=== PATIENT | male | born 1960 | race Hispanic/Latino ===

== ENCOUNTER 2023-06-19 19:51 | Emergency (ER) | payer OTHER ==
[~2023-06-19] VITALS: Ht 172.7 cm; Wt 81.6 kg
[2023-06-19 20:15] VITALS: BP 129/75
[2023-06-19 20:30] VITALS: BP 121/71
[2023-06-19 20:53] LABS: BASO% 0.6 % (0-3); EOS% 5.1 % (0-8); HEMATOCRIT 45.3 % (39.0-50.0); HEMOGLOBIN 14.6 g/dl (14.0-18.0); IMMATURE GRANULOCYTES 0.3 % (0.0-5.0); LYMPH% 20.9 % (15-41); MEAN CELL VOLUME 88.8 fL CALC (80.0-100.0); MEAN CORPUSCULAR HGB 28.6 pG CALC (26.0-32.0); MEAN CORPUSCULAR HGB CONC 32.2 g/dL CAL (32.0-36.0); MONO% 8.1 % (2-13); NEUT# 7.05 thou/uL (1.82-7.42); RED BLOOD COUNT 5.1 mill/uL (4.70-6.10); RED CELL DISTRI WIDTH 12.5 % (11.5-15.5)
[2023-06-19 21:01] VITALS: BP 113/74
[2023-06-19 22:09] VITALS: BP 144/75
[2023-06-19 22:12] VITALS: BP 144/75
== END 2023-06-19 22:13 | disposition home or self-care (01) | DRG 866 ==
LOC: ED 19:51
PROVIDERS: Family Medicine
DX: B34.9 Viral infection, unspecified (principal); Z20.822 Contact with and (suspected) exposure to COVID-19